=== PATIENT | male | born 1965 | race Two or more races ===

== ENCOUNTER 2018-10-03 10:19 | Outpatient (CLI) | payer OTHER ==
--- NOTE | 2018-10-03 11:41 | Diagnostic Imaging Report ---
Indication:Abdominal pain Technique: Grayscale and duplex Doppler imaging of the abdomen performed. Comparison: None Findings: The liver is echogenic consistent with fatty infiltration.. The gallbladder is absent. CBD measures 3.3 mm. The demonstrated part of the pancreas, aorta and IVC show no abnormalities. Both kidneys appear unremarkable. The spleen is normal in size. There is no biliary ductal dilatation identified. Doppler evaluation of the main portal vein shows patency. There is no ascites. No hydronephrosis seen. Impression: Fatty liver. Status post cholecystectomy
== END 2018-10-03 12:19 | disposition home or self-care (01) ==
LOC: ULS 10:19
DX: R10.9 Unspecified abdominal pain (principal); Z90.49 Acquired absence of other specified parts of digestive tract
CPT/HCPCS: 76700